=== PATIENT | male | born 1965 | race Asian ===

== ENCOUNTER 2024-12-06 02:45 | Emergency (ER) | payer MEDICAID ==
[~2024-12-06] VITALS: Ht 170.2 cm; Wt 88.4 kg
--- NOTE | 2024-12-06 02:58 | ELECTROCARDIOGRAPH REPORT ---
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 Farhad Owens Measurements Intervals [place] Rate: 75 P: 51 [place]: 201 QRS: 15 QRSD: 93 T: 20 QT: 390 QTc: 436 Interpretive Statements Sinus rhythm Low voltage, precordial leads Electronically Signed On 12-13-2024 17:59:[address] Farhad Owens Please click the below link to view image of tracing.
--- NOTE | 2024-12-06 03:00 | Physician Documentation ---
History of Present Illness ~ Chief Complaint: Abdominal Pain w/vomiting Stated Complaint: ABDOMINAL PAIN Time Seen by MD: 02:49 Source: patient, EMS, EMS notes reviewed Mode of Arrival: EMS Exam Limitations: no limitations HPI Chief Complaint: Abdominal pain Caveat: None Independent Historians: Paramedics History of Present Illness: Patient is a 59-year-old man brought in by paramedics from home when he was awoke prior to arrival with severe mid abdomin al pain. Pain is described as twisting. Patient had associated nausea and vomiting several times. No hematemesis. Patient also had a couple episodes of diarrhea. No known sick contacts. No fever. Paramedics gave 1 g of Tylenol and Zofran 4 mg IV prior to arrival. Patient's pain has improved from a 10/10 to a 5/10. No other associated symptoms. Review of systems: All systems were reviewed and are negative except for what is indicated in the history of present illness. Past Medical History: None Past Surgical History: None Social History: No tobacco use, no alcohol use, no drug use Medications: Reviewed as documented Nursing Notes Allergies: Reviewed as documented in Nursing Notes Medication Reconciliation Allergies: Coded Allergies: No Known Allergies (Unverified , 12/06/24) Scheduled Ciprofloxacin HCl (Ciprofloxacin HCl), 1 TAB PO Q12H Scheduled PRN ONDANSETRON ODT 4mg tablet (Ondansetron Odt), 1 TAB PO Q6H PRN PRN for nausea/vomiting Review of Systems All Other Systems at this time: Reviewed and Negative ROS Patient denies any other acute symptoms other than above. All other systems are negative Physical Exam Vital Signs: RN Vital Signs have been reviewed: Yes, Temperature: 97.8, Source: Oral, Heart Rate: 74, Respiratory Rate: 17, BP: 121/78, Pulse Oximetry: 94, Weight: 88.400 Pulse Oximetry Reflects: adequate oxygenation Physical Exam General Appearance: Mild distress HEENT: Normal OP, moist oral mucosa, PERRL, EOMI Neck: supple, normal ROM, trachea midline Pulmonary: No respiratory distress, CTA, BS equal Cardiac: RRR, no murmur, rub or gallop, GI: nondistended, soft, nontender, normal bowel sounds, no guarding, no rebound Extremities: normal ROM, no swelling, non-tender Skin: intact, dry, warm, no rashes Neuro: AAOx3, speech is clear, no focal motor weakness Psych: normal affect, good eye contact, no apparent hallucination, normal speech Progress Results/Orders Results/Orders Orders - THERESA BERNABE MD Saline Lock (12/06/24 02:54) Ed Iv Antiemetics (12/06/24 02:55) Ed Iv Pain Medications (12/06/24 02:55) Monitor (12/06/24 02:55) Ct Abdomen Pelvis (12/06/24 04:53) Completed Orders - THERESA BERNABE MD Urinalysis, Cult If Indicated (12/06/24 02:54) Cbc/Diff (12/06/24 02:54) Lipase (12/06/24 02:54) CMP (12/06/24 02:54) Normal Saline 1000ml (Sodium Chloride 10 (12/06/24 02:55) Morphine 4mg/Ml Inj. (Morphine Inj.) (12/06/24 02:55) Electrocardiogram (12/06/24 02:56) Ct Abdomen Pelvis (12/06/24 04:53) Ciprofloxacin Tablet (Cipro Tablet) (12/06/24 06:05) Vital Signs 12/06/24 12/06/24 12/06/24 12/06/24 02:47 02:53 03:13 04:32 Temp 97.8 Pulse 74 Resp 18 17 16 14 B/P (MAP) 121/78 Pulse Ox 94 12/06/24 12/06/24 05:42 06:20 Temp 97.8 97.8 Pulse 72 69 Resp 14 16 B/P (MAP) 107/77 (87) 102/73 Pulse Ox 95 95 Laboratory Tests Test 12/06/24 03:08 12/06/24 03:10 White Blood Count 8.2 Red Blood Count 4.82 Hemoglobin 14.8 Hematocrit 41.9 L Mean Corpuscular Volume 86.9 Mean Corpuscular Hemoglobin 30.6 Mean Corpuscular Hemoglobin Concent 35.3 Red Cell Distribution Width 12.8 Platelet Count 216 Mean Platelet Volume 8.2 Neutrophils (%) (Auto) 55.6 Lymphocytes (%) (Auto) 25.5 Monocytes (%) (Auto) 7.5 Eosinophils (%) (Auto) 10.5 H Basophils (%) (Auto) 0.9 Neutrophils # (Auto) 4.6 Lymphocytes # (Auto) 2.1 Monocytes # (Auto) 0.6 Eosinophils # (Auto) 0.9 Basophils # (Auto) 0.1 CBC Comment Sodium Level 141 Potassium Level 3.6 Chloride Level 104 Carbon Dioxide Level 25.1 Anion Gap 12 Blood Urea Nitrogen 21 H Creatinine 0.86 Estimated GFR/1.73 m2 > 90 BUN/Creatinine Ratio 24.4 H Glucose Level 156 H Calcium Level 8.0 L Total Bilirubin 0.6 Aspartate Amino Transf (AST/SGOT) 7 L Alanine Aminotransferase (ALT/SGPT) 32 Alkaline Phosphatase 51 Total Protein 6.7 Albumin 3.4 Globulin 3.3 Albumin/Globulin Ratio 1.0 L Lipase 34 Chemistry Comments Urine Specimen Description Urinal Urine Color Yellow Urine Clarity Clear Urine pH 6.0 Urine Specific [place] 1.025 Urine Protein Negative Urine Glucose (UA) Negative Urine Ketones Negative Urine Occult Blood Negative Urine Nitrite Negative Urine Bilirubin Negative Urine Urobilinogen 0.2 Urine Leukocyte Esterase Negative Urine Culture Indicated Not ind Volume Urine Centrifuged 10 ml Urine Comment Medical Decision Making Findings Differential diagnosis includes but is not limited to: Food poisoning, viral gastroenteritis, bacterial gastroenteritis, colic, pancreatitis, cholecystitis, choledocholithiasis, gastritis, peptic ulcer, duodenitis, gastric ulcer EKG independent interpretation: Performed at 2:55 a.m.. Normal sinus rhythm, heart rate 75, normal axis, normal ST segments ABDOMEN PELVIS CT SCAN WITHOUT IV CONTRAST, INDICATION: LEFT LOWER ABDOMINAL PAIN Impression: Laboratory data independent interpretation: CBC: Unremarkable CMP: Unremarkable Lipase: Urinalysis: Unremarkable Emergency department course/medical decision-making: Patient is a 59-year-old man who presents with acute mid lower abdominal pain. Patient had associated nausea vomiting and diarrhea. Patient is given 1 L of normal saline, morphine 4 mg IV. Suspect a viral illness. Patient does not have any right upper quadrant tenderness do not suspect acute cholecystitis. 4:55 a.m.: Patient re-evaluated. Patient still has abdominal pain 4/10 despite the morphine. Patient now has left lower quadrant tenderness. Patient will be given a CT scan of the abdomen and pelvis without IV contrast. Further history obtained, the patient states that he has had similar pain one month ago the and he saw his doctor gave him some unknown medication and his symptoms improved. CT of the abdomen and pelvis shows colitis of the transverse and ascending colon. Patient does not appear to be any admission criteria. Patient will be started on Cipro for possible infectious cause for the colitis. Patient will need to follow up with his primary care doctor today for referral to a [place] stro[place]. Patient is instructed to return if his symptoms worsen. All the test results above in treatment and follow up plan and need for return was discussed with him. Patient is stable for discharge. Departure Time of Disposition: 05:58 Disposition: 01 HOME / SELF CARE / HOMELESS Impression: Primary Impression: Acute abdominal pain Additional Impressions: Nausea vomiting and diarrhea Colitis Condition: Stable Discharge Instructions: Colitis, Viral Gastroenteritis, Adult, [id number] Additional Instructions: YOU HAVE A COLITIS WHICH IS INFLAMMATION OF THE LARGE BOWEL. THIS IS WHAT IS CAUSING YOUR DIARRHEA AND PAIN. THE CAUSE IS UNKNOWN AT THIS TIME. TAKE THE ANTIBIOTICS DIRECTED AND FOLLOW UP WITH YOUR DOCTOR THIS WEEK. WE WILL NEED REFERRAL TO A OPHTHALMIC ASST FOR A COLONOSCOPY. RETURN TO THE EMERGENCY DEPARTMENT IF YOUR SYMPTOMS WORSEN. Prescriptions Ciprofloxacin HCl (Ciprofloxacin HCl) 500 Mg Tab 1 TAB PO Q12H for 10 Days, #20 TAB Prov: THERESA BERNABE MD 12/06/24 ONDANSETRON ODT 4mg tablet (ONDANSETRON ODT) 4 Mg Tab.rapdis 1 TAB PO Q6H PRN PRN for nausea/vomiting for 4 Days, #16 TAB 0 Refills Prov: THERESA BERNABE MD 12/06/24 Education Educated: Patient Educated regarding: diagnosis, treatment Signature Scribe Signature: No scribe Attestation: No scribe THERESA BERNABE MD Dec 06, 2024 03:00
[2024-12-06] MEDS: morphine 4 MG/ML inj SYRINge IV PRN (03:13)
[2024-12-06] MEDS: normal saline 1000ML IV soln IVB ONE (03:16)
[2024-12-06 03:28] LABS: BILIRUBIN,URINE NEGATIVE (Neg); CLARITY,URINE CLEAR (Clear); COLOR,URINE YELLOW (Yellow); GLUCOSE, URINE NEGATIVE (Neg); KETONES,URINE NEGATIVE (Neg); LEUKOCYTE ESTERASE ,URINE NEGATIVE (Neg); NITRITES, URINE NEGATIVE (Neg); OCCULT BLOOD,URINE NEGATIVE (Neg); PROTEIN,URINE NEGATIVE (Neg); UROBILINOGEN,URINE 0.2 E.U/dL (0.2-1.0)
[2024-12-06 03:29] LABS: UA COLLECTION TYPE URINAL
[2024-12-06 03:29] LABS: BASOPHILS # (AUTO) 0.1 X10'3 (0-0.2); BASOPHILS % (AUTO) 0.9 % (0-1); EOSINOPHILS # (AUTO) 0.9 X10'3 (0-0.9); EOSINOPHILS % (AUTO) 10.5 % (0-6); HEMATOCRIT 41.9 % (42.0-52.0); HEMOGLOBIN 14.8 g/dl (14.0-17.9); LYMPHOCYTES # (AUTO) 2.1 X10'3 (1.1-4.8); LYMPHOCYTES % (AUTO) 25.5 % (21-51); MEAN CORPUSCULAR HEMOGLOBIN 30.6 PG (27.0-31.0); MEAN CORPUSCULAR HGB CONC 35.3 g/dL (33.0-36.5); MEAN CORPUSCULAR VOLUME 86.9 FL (78-98); MEAN PLATELET VOLUME 8.2 FL (7.4-10.4); MONOCYTES # (AUTO) 0.6 X10'3 (0-0.9); MONOCYTES % (AUTO) 7.5 % (2-12); NEUTROPHILS # (AUTO) 4.6 X10'3 (1.8-7.7); NEUTROPHILS % (AUTO) 55.6 % (42-75); PLATELET COUNT 216 X10'3 (140-440); RED BLOOD COUNT 4.82 X10'6 (4.70-6.10); RED CELL DISTRIBUTION WIDTH 12.8 % (11.5-14.5); WHITE BLOOD COUNT 8.2 X10'3 (4.5-11.0)
[2024-12-06 03:40] LABS: LIPASE 34 U/L (16-77); TOTAL CARBON DIOXIDE 25.1 MMOL/L (24-32); eGFR > 90 ML/MIN
[2024-12-06 04:12] LABS: ALBUMIN 3.4 G/DL (3.4-5.0); ALKALINE PHOSPHATASE 51 IU/L (46-116); ANION GAP 12 (8-16); BILIRUBIN,TOTAL 0.6 MG/DL (0.1-1.0); BLOOD UREA NITROGEN 21 MG/DL (7-18); BUN/CREATININE RATIO 24.4 (10.0-20.0); CHLORIDE 104 MMOL/L (99-107); CREATININE 0.86 MG/DL (0.60-1.10); SODIUM 141 MMOL/L (135-145); TOTAL PROTEIN 6.7 G/DL (6.4-8.2); eCRCL 85 ML/MIN
[2024-12-06 04:25] LABS: ASPARTATE AMINO TRANSFERASE 7 U/L (10-37)
[2024-12-06 04:50] LABS: ALANINE AMINOTRANSFERASE 32 U/L (12-78); GLUCOSE 156 MG/DL (70-104); POTASSIUM 3.6 MMOL/L (3.5-5.1)
[2024-12-06] MEDS ORDERED: ONDA-243 PO (04:59)
--- NOTE | 2024-12-06 05:44 | RADIOLOGY REPORT ---
EXAM: CT Abdomen and Pelvis Without Intravenous Contrast CLINICAL INDICATION: Pain TECHNIQUE: Axial computed tomography images of the abdomen and pelvis without intravenous contrast. This CT exam was performed using one or more of the following dose reduction techniques: automated exposure control, adjustment of the mA and/or kV according to patient size, and/or use of iterative r econstruction technique. COMPARISON: No relevant prior studies available. FINDINGS: LUNG BASES: Unremarkable. No mass. No consolidation. ABDOMEN: LIVER: Unremarkable. GALLBLADDER AND BILE DUCTS: Unremarkable. No calcified stones. No ductal dilation. PANCREAS: Unremarkable. No ductal dilation. SPLEEN: Unremarkable. No splenomegaly. ADRENALS: Unremarkable. No mass. KIDNEYS AND URETERS: Unremarkable. No obstructing stones. No hydronephrosis. STOMACH AND BOWEL: Colitis of the transverse colon and ascending colon. No bowel obstruction or pne umoperitoneum. Fecal retention in the colon consistent with constipation. Colonic diverticulosis wi thout acute diverticulitis. PELVIS: APPENDIX: No findings to suggest acute appendicitis. BLADDER: Unremarkable. No stones. REPRODUCTIVE: Unremarkable as visualized. ABDOMEN and PELVIS: INTRAPERITONEAL SPACE: See above. BONES/JOINTS: Degenerative disc disease throughout the lumbar spine. Degenerative facet arthropathy throughout the lumbar spine, most prominent in the lower lumbar spine. No acute fracture. No dislo cation. SOFT TISSUES: Unremarkable. VASCULATURE: Unremarkable. No abdominal aortic aneurysm. LYMPH NODES: Unremarkable. No enlarged lymph nodes. IMPRESSION: 1. Colitis of the transverse colon and ascending colon. No bowel obstruction or pneumoperitoneum. 2. Fecal retention in the colon consistent with constipation. 3. Colonic diverticulosis without acute diverticulitis. 4. Degenerative changes lumbar spine as described.
[2024-12-06] MEDS ORDERED: CIPR-202 PO (05:58)
[2024-12-06] MEDS: ciprofloxacin 250mg tablet PO ONE (06:11)
[2024-12-06 06:20] VITALS: BP 102/73; PULSE 69; RESP 16; TEMP 97.8; O2SAT 95
== END 2024-12-06 06:21 | disposition home or self-care (01) ==
LOC: ER 02:46
DX: K52.9 Noninfective gastroenteritis and colitis, unspecified (principal)
CPT/HCPCS: 36415; 74176; 80053; 81003; 83690; 85025; 93005; 96361; 96374; 96376; 99285; J2270; J7030; 96375